=== PATIENT | female | born 1960 | race Caucasian/White ===

== ENCOUNTER 2017-12-04 18:29 | Emergency (ER) | payer OTHER ==
[~2017-12-04] VITALS: Ht 157.5 cm; Wt 54.4 kg
[2017-12-05] MEDS ORDERED: DICLOFENAC POTA50 MG PO (03:57)
[2017-12-05] MEDS ORDERED: ORPHENADRINE C100 MG PO (03:57)
[2017-12-05] MEDS ORDERED: RANITIDINE HCL300 MG PO (03:57)
== END 2017-12-05 04:21 | disposition home or self-care (01) ==
LOC: ER 18:29
DX: M54.5 Low back pain (principal); R10.30 Lower abdominal pain, unspecified